=== PATIENT | female | born 1990 | race Caucasian/White ===

== ENCOUNTER 2018-10-27 22:00 | Inpatient (IN) | payer OTHER ==
[2018-10-27] MEDS ORDERED: METHYLERGONOVINE 0.2 MG INJ IM (23:00)
[2018-10-27] MEDS ORDERED: MISOPROSTOL 200 MCG TAB PR (23:00)
[2018-10-27] MEDS ORDERED: BUTORPHANOL 2 MG INJ IV (23:00)
[2018-10-27] MEDS ORDERED: BUTORPHANOL 1 MG INJ IV (23:00)
[2018-10-27] MEDS ORDERED: OXYTOCIN 30 UNITS/LR 500 ML IV ×2 (23:00→23:14)
[2018-10-27] MEDS ORDERED: CARBOPROST 250 MCG INJ IM (23:00)
[2018-10-27] MEDS ORDERED: IBUPROFEN 600 MG TAB PO (23:00)
[2018-10-27] MEDS: LACTATED RINGER'S 1,000 ML IV (23:41)
[2018-10-27] MEDS: OXYTOCIN 30 UNITS/LR 500 ML IV (23:52)
[2018-10-28 01:11] LABS: ADD MAN DIFF? NO
[2018-10-28 01:18] LABS: HEMATOCRIT 36.7 % (37.0-47.0); HEMOGLOBIN 11.9 g/dl (12.0-16.0); MEAN CORPUSCULAR HEMOGLOBIN 27.5 pg (29.0-33.0); MEAN CORPUSCULAR HGB CONC 32.4 g/dl (32.0-37.0); MEAN CORPUSCULAR VOLUME 84.8 fl (82.0-101.0); MEAN PLATELET VOLUME 11.2 fl (7.4-10.4); PLATELET COUNT 294 10^3/UL (140-415); RED BLOOD COUNT 4.33 10^6/ul (4.20-5.40); RED CELL DISTRIBUTION WIDTH 13.7 % (11.5-14.5)
[2018-10-28 01:19] LABS: BASOPHILS % 0.3 % (0.0-2.0); EOSINOPHILS # 0.1 10^3/ul (0.0-0.5); EOSINOPHILS % 1.4 % (0.0-7.0); LYMPHOCYTES % 20.2 % (15.0-51.0); MONOCYTE # 0.8 10^3/ul (0.3-0.9); MONOCYTES % 7.5 % (0.0-11.0); NEUTROPHIL # 6.9 10^3/ul (1.6-7.5); NEUTROPHILS % 69.6 % (39.0-77.0)
[2018-10-28] MEDS: LACTATED RINGER'S 1,000 ML IV ×2 (01:25→15:55)
[2018-10-28 01:37] LABS: INR 0.93; PROTIME 12.6 Sec (11.9-14.9)
[2018-10-28 01:38] LABS: PARTIAL THROMBOPLASTIN TIME 28.1 Sec (23.0-35.0)
[2018-10-28 02:39] LABS: HEPATITIS B SURFACE ANTIGEN NEGATIVE (NEGATIVE)
[2018-10-28] MEDS: OXYTOCIN 30 UNITS/LR 500 ML IV (18:41)
[2018-10-28 19:44] LABS: RAPID PLASMA REAGIN NONREACTIVE (NR)
[2018-10-28] MEDS ORDERED: KETOROLAC 30 MG INJ IV (23:00)
[2018-10-28] MEDS ORDERED: ONDANSETRON 4 MG INJ IV (23:00)
[2018-10-28] MEDS ORDERED: DIPHENHYDRAMINE 50 MG INJ IV (23:00)
[2018-10-28] MEDS ORDERED: ZOLPIDEM 5 MG TAB PO (23:00)
[2018-10-28] MEDS ORDERED: NALOXONE (0.4 MG/ML) INJ IV (23:00)
[2018-10-28] MEDS ORDERED: HYDROmorphONE 0.5 MG/0.5 ML SYG IV ×2 (23:00)
[2018-10-29] MEDS: LIDOCAINE 1% (MPF) 30 ML INJ INJ (06:55)
[2018-10-29] MEDS: FENTAnyl 2MCG/ML-ROPIV 0.2% 100 ML BAG EPI (07:01)
[2018-10-29] MEDS: OXYTOCIN 30 UNITS/LR 500 ML IV ×3 (07:05→10:47)
[2018-10-29] MEDS ORDERED: OXYTOCIN 30 UNITS/LR 500 ML IV (07:30)
[2018-10-29] MEDS ORDERED: CARBOPROST 250 MCG INJ IM (07:30)
[2018-10-29] MEDS ORDERED: MISOPROSTOL 200 MCG TAB PR (07:30)
[2018-10-29] MEDS ORDERED: METHYLERGONOVINE 0.2 MG INJ IM (07:30)
[2018-10-29] MEDS: HYDROCODONE/APAP (5/325) TAB PO (08:06)
[2018-10-29] MEDS: LACTATED RINGER'S 1,000 ML IV* (15:06)
[2018-10-29] MEDS: IBUPROFEN 600 MG TAB PO ×2 (15:06→17:00)
[2018-10-29] MEDS: LANOLIN HPA 1 PKT TOP (16:27)
[2018-10-29] MEDS: BENZOCAINE 20% 56 ML SPRAY TOP (16:27)
[2018-10-30] MEDS: IBUPROFEN 600 MG TAB PO ×4 (00:18→17:50)
[2018-10-30 06:43] LABS: ADD MAN DIFF? NO
[2018-10-30 06:46] LABS: WHITE BLOOD COUNT 11.7 10^3/ul (4.8-10.8)
[2018-10-30 06:46] LABS: BASOPHIL # 0.1 10^3/ul (0.0-0.1); BASOPHILS % 0.4 % (0.0-2.0); EOSINOPHILS # 0.2 10^3/ul (0.0-0.5); EOSINOPHILS % 1.5 % (0.0-7.0); HEMATOCRIT 30.8 % (37.0-47.0); LYMPHOCYTES # 2.7 10^3/ul (0.8-2.9); LYMPHOCYTES % 22.7 % (15.0-51.0); MEAN CORPUSCULAR HEMOGLOBIN 27.9 pg (29.0-33.0); MEAN CORPUSCULAR HGB CONC 32.5 g/dl (32.0-37.0); MEAN CORPUSCULAR VOLUME 85.8 fl (82.0-101.0); MEAN PLATELET VOLUME 10.5 fl (7.4-10.4); MONOCYTE # 0.9 10^3/ul (0.3-0.9); MONOCYTES % 7.5 % (0.0-11.0); NEUTROPHIL # 7.9 10^3/ul (1.6-7.5); NEUTROPHILS % 67.2 % (39.0-77.0); PLATELET COUNT 218 10^3/UL (140-415); RED BLOOD COUNT 3.59 10^6/ul (4.20-5.40); RED CELL DISTRIBUTION WIDTH 14.1 % (11.5-14.5)
[2018-10-31] MEDS: IBUPROFEN 600 MG TAB PO ×3 (00:07→10:08)
[2018-10-31] MEDS: DIPHTH/TET/ACEL PERTUSS (ADULT) 0.5 ML VIAL IM* (09:00)
== END 2018-10-31 12:57 | disposition home or self-care (01) | DRG 807 ==
LOC: PP1 10-29 14:17 → L-D 22:00
PROVIDERS: Obstetrics & Gynecology
PROC: 10E0XZZ Delivery of Products of Conception, External Approach (ICD-10-PCS; principal; 2018-10-28)
PROC: 0KQM0ZZ Repair Perineum Muscle, Open Approach (ICD-10-PCS; 2018-10-28)
DX: O70.1 Second degree perineal laceration during delivery (principal); Z37.0 Single live birth; Z3A.39 39 weeks gestation of pregnancy
CPT/HCPCS: 62319; 85025; 85610; 85730; 86592; 86850; 86900; 86901; 87340; 90686